=== PATIENT | male | born 1965 | race Caucasian/White ===

== ENCOUNTER 2020-01-22 12:40 | Outpatient (REF) | payer MEDICARE, SELFPAY | END 2020-01-22 12:41 | disposition home or self-care (01) | LOC: HO.LAB 12:40 | PROVIDERS: Visit Provider Internal Medicine | DX: Z20.828 Contact with and (suspected) exposure to other viral communicable diseases (principal) | CPT/HCPCS: C9803; U0003 ==

== ENCOUNTER 2020-12-22 15:47 | Outpatient (REF) | payer MEDICARE, SELFPAY ==
[2020-12-22 17:00] LABS: Anion Gap 11 (12-20); Blood Urea Nitrogen 9 mg/dL (9-16); Calcium 9.3 mg/dL (8.4-10.2); Carbon Dioxide 27 mmol/L (22-29); Chloride 106 mmol/L (96-108); Estimated Glomerular Filt Rate > 60; Glucose Random 101 mg/dL (60-115); Potassium 4.6 mmol/L (3.3-5.1); Sodium 139 mmol/L (135-145)
[2020-12-22 17:22] LABS: T4 Thyroxine 8.2 ug/dL (4.5-12.0); Thyroid Stimulating Hormone 1.37 uIU/mL (0.32-4.0)
[2020-12-22 17:32] LABS: Folate 15.8 ng/mL (> or = 4.0); Vitamin B12 377 pg/mL (200-900)
== END 2020-12-22 15:48 | disposition home or self-care (01) ==
LOC: HO.LAB 15:47
PROVIDERS: Visit Provider Psychiatry & Neurology Neurology
DX: G31.84 Mild cognitive impairment of uncertain or unknown etiology (principal)
CPT/HCPCS: 36415; 80048; 82607; 82746; 84436; 84443

== ENCOUNTER → 2021-02-15 13:26 | Outpatient (REF) | payer MEDICARE, SELFPAY | LOC: HO.SL 13:26 | PROVIDERS: PCP Internal Medicine; Visit Provider Psychiatry & Neurology Neurology | DX: Z13.89 Encounter for screening for other disorder (principal) ==

== ENCOUNTER → 2021-05-20 08:53 | Outpatient (BNVA) | payer OTHER, SELFPAY | PROVIDERS: PCP Internal Medicine; Visit Provider Psychiatry & Neurology Neurology | DX: F09 Unspecified mental disorder due to known physiological condition (principal); R06.83 Snoring | CPT/HCPCS: 99202 ==

== ENCOUNTER 2021-05-24 08:38 | Outpatient (REF) | payer OTHER, SELFPAY ==
[2021-05-24 10:16] LABS: Thyroid Stimulating Hormone 1.81 uIU/mL (0.32-4.0)
[2021-05-24 11:27] LABS: Vitamin B12 319 pg/mL (200-900)
== END 2021-05-24 08:39 | disposition home or self-care (01) ==
LOC: HO.LAB 08:38
PROVIDERS: PCP Internal Medicine; Visit Provider Psychiatry & Neurology Neurology
DX: F09 Unspecified mental disorder due to known physiological condition (principal)
CPT/HCPCS: 36415; 82607; 84443

== ENCOUNTER 2021-07-14 14:37 | Outpatient (REF) | payer OTHER, SELFPAY ==
--- NOTE | ~2021-07-14 | US_ITS ---
EXAMINATION: US EXTRACRANIAL CAROTID DUPLEX, BILATERAL CLINICAL INFORMATION: Cerebral infarction. COMPARISON: None TECHNIQUE: Real-time ultrasound and Doppler techniques (integrating B-mode 2-D vascular images, Doppler spectral analysis and color-flow Doppler imaging) were utilized to interrogate the extracranial carotid arteries, the vertebral arteries and proximal subclavian arteries bilaterally. The degree of stenosis is determined by criteria similar to NASCET. FINDINGS: RIGHT SIDE: 1. There is no atherosclerotic plaque seen in the bifurcation/proximal ICA region. 2. The common carotid artery PSV proximally is 109 cm/s and distally 62.5 cm/s. 3. The proximal internal carotid artery velocities are 53.4 cm/s systolic and 20.8 cm/s diastolic. 4. The proximal external carotid artery PSV is 125 cm/s. 5. The vertebral artery shows antegrade flow. 6. The subclavian artery waveforms are 129. LEFT SIDE: 1. There is no atherosclerotic plaque seen in the bifurcation/proximal ICA region. 2. The common carotid artery PSV proximally is 104 cm/s and distally 82.5 cm/s. 3. The proximal internal carotid artery velocities are 49.4 cm/s systolic and 23.6 cm/s diastolic. 4. The proximal external carotid artery PSV is 99.7 cm/s. 5. The vertebral artery shows antegrade flow. 6. The subclavian artery waveforms are normal. US/US carotid duplex BI IMPRESSION: 1. Right: No hemodynamically significant stenosis. 2. Left: No hemodynamically significant stenosis. 3. Normal antegrade flow seen in both vertebral arteries.
== END 2021-07-14 14:38 | disposition home or self-care (01) ==
LOC: HO.US 14:37
PROVIDERS: Visit Provider Psychiatry & Neurology Neurology
DX: I63.9 Cerebral infarction, unspecified (principal); F09 Unspecified mental disorder due to known physiological condition; G89.29 Other chronic pain; R06.83 Snoring; R51.9 Headache, unspecified
CPT/HCPCS: 93880; 95806

== ENCOUNTER → 2021-07-23 09:29 | Outpatient (BNVA) | payer OTHER, SELFPAY | PROVIDERS: PCP Internal Medicine; Visit Provider Nurse Practitioner Family | DX: R06.83 Snoring (principal); F09 Unspecified mental disorder due to known physiological condition | CPT/HCPCS: 99212 ==